=== PATIENT | male | born 1950 | race Two or more races ===

== ENCOUNTER 2019-02-19 08:40 | Observation (INO) | payer BC, MEDICAID, OTHER ==
[~2019-02-19] VITALS: Ht 180.3 cm; Wt 102.5 kg
[~2019-02-19 08:40] MED LIST: ASPI-858 PO; COR12.5 PO; ERGO400T3 PO; FENO145T PO; FURO20TA4 PO; LOSA1TAB15 PO; METF-379 PO; POTA8CAP PO; PRO40 PO; SIMV20TA6 PO
--- NOTE | 2019-02-19 08:40 | NUR ---
Patient to ER bed 3 to gown for evaluation. Side rails up.
--- NOTE | 2019-02-19 08:49 | NUR ---
Patient is awake, alert, and oriented x4. Patient is complaining of chest pressure x3 days, denies it is pain. He denies nausea, vomiting, and diarrhea.
[2019-02-19 08:50] VITALS: BP_SYST 158
--- NOTE | 2019-02-19 08:54 | NUR ---
ER Dr. Guerra at bedside examining patient.
[2019-02-19] MEDS ORDERED: ASPIRIN 81 MG TAB.CHEW PO ONE (09:00)
[2019-02-19] MEDS ORDERED: NITROGLYCERIN 0.4 MG TAB.SUBL SL ONE (09:15)
[2019-02-19 09:27] LABS: EOSINOPHILS # (AUTO) 0.1 K/uL (0.0-0.4); HEMATOCRIT 49.2 % (36-54)
[2019-02-19 09:33] LABS: BASOPHILS # (AUTO) 0.1 K/uL (0.0-0.2); BASOPHILS % (AUTO) 0.7 % (0.0-2.0); EOSINOPHILS % (AUTO) 0.6 % (0.0-4.0); HEMOGLOBIN 16.7 g/dL (14.0-18.0); LYMPHOCYTES # (AUTO) 2.3 K/uL (1.0-5.5); MEAN CORPUSCULAR HEMOGLOBIN 31 pg (27-31); MEAN CORPUSCULAR HGB CONC 34 % (32-36); MEAN CORPUSCULAR VOLUME 91 fL (79.0-98.0); MONOCYTES # (AUTO) 0.5 K/uL (0.0-1.0); MONOCYTES % (AUTO) 5.9 % (1.7-9.3); NEUTROPHILS # (AUTO) 5.5 K/uL (1.8-7.7); NEUTROPHILS % (AUTO) 65.8 % (40.0-70.0); PLATELET COUNT (AUTO) 172 K/uL (130-430); RED BLOOD CELL COUNT(AUTO) 5.41 MIL/uL (4.2-6.2); RED CELL DISTRIBUTION WIDTH 13.2 % (9.0-15.0); WHITE BLOOD COUNT (AUTO) 8.4 K/uL (4.8-10.8)
[2019-02-19 09:37] LABS: CALCIUM 8.9 mg/dL (8.4-11.0); CREATININE 1.14 mg/dL (0.55-1.30); POTASSIUM 4.1 mmol/L (3.5-5.1)
[2019-02-19 09:42] LABS: ALBUMIN 3.8 g/dL (3.4-4.8); TOTAL BILIRUBIN 0.9 mg/dL (0.0-1.0)
[2019-02-19] MEDS ORDERED: POTA8TAB4 PO (10:30)
[2019-02-19] MEDS ORDERED: LOSA100T3 PO (10:30)
[2019-02-19] MEDS ORDERED: ASPI-1153 PO (10:30)
[2019-02-19] MEDS ORDERED: ROSU10TA2 PO (10:30)
[2019-02-19] MEDS ORDERED: Fenofibrate PO (10:30)
[2019-02-19] MEDS ORDERED: LIP10 PO (10:30)
[2019-02-19] MEDS ORDERED: DONE10TA44 PO (10:30)
[2019-02-19] MEDS ORDERED: MEMA10TA PO (10:30)
[2019-02-19] MEDS ORDERED: FURO-150 PO (10:30)
--- NOTE | 2019-02-19 10:31 | NUR ---
Medication reconciliation completed with information provided by patient. Any prior medication reconciliation on file was reviewed and corrected.
--- NOTE | 2019-02-19 11:12 | NUR ---
Patient will be admitted to care of Dr. Weston. Admitted to telemetry unit. Waiting for room assignment. Belongings list completed. Complete and up to date summary report printed. SBAR report to be given at bedside with opportunity for questions.
--- NOTE | 2019-02-19 11:19 | NUR ---
Patient assigned to room 130A by FORTINO Lucas.
[2019-02-19 11:24] LABS: BILIRUBIN,URINE NEGATIVE (NEGATIVE); BLOOD, URINE NEGATIVE (NEGATIVE); CLARITY/URINE CLEAR (CLEAR); COLOR,URINE YELLOW (YELLOW); GLUCOSE,URINE 3+ (NEGATIVE); KETONES,URINE NEGATIVE (NEGATIVE); LEUKOCYTE ESTERASE ,URINE NEGATIVE (NEGATIVE); NITRITE, URINE NEGATIVE (NEGATIVE); PROTEIN URINE NEGATIVE (NEGATIVE)
[2019-02-19 11:29] LABS: BACTERIA,URINE FEW /HPF (None Seen); RBC,URINE 0-3 /HPF (0-3); WBC,URINE 0-3 /HPF (0-3)
--- NOTE | 2019-02-19 11:30 | NUR ---
[facility] Licensed nurse present. IV present no signs or symptoms of infiltration.
--- NOTE | 2019-02-19 11:36 | NUR ---
Admission Note Received patient from ER with diagnosis of CHEST PAIN. Initial Plan of Care discussed-patient verbalized understanding.. Oriented to room, call light, pain management and safety.
[2019-02-19 11:55] VITALS: BP_SYST 137
[2019-02-19 12:00] VITALS: BP_SYST 137
--- NOTE | 2019-02-19 12:00 | NUR ---
INITIAL NOTE: RECEIVED PATIENT FROM THE ER. PATIENT IS AWAKE AND ALERT x4 LAYING DOWN IN BED. PATIENT STATES HE HAS BEEN HAVING PRESSURE IN HIS CHEST FOR THE PAST THREE DAYS. PATIENT DENIES ANY PAIN AT THE MOMENT. NO SIGNS OF DISTRESS OR SHORTNESS OF BREATH NOTED. IV SITE IS PATENT WITH NO SIGNS OF INFILTRATION. PATIENT IS TOLERATING OXYGEN AT ROOM AIR. PATIENT IN STABLE CONDITION. SAFETY AND FALL PRECAUTIONS ARE IN PLACE. BED LOCKED IN LOWEST POSITION WITH CALL LIGHT IN REACH. WILL CONTINUE TO MONITOR PATIENT FOR ANY CHANGES.
[2019-02-19] MEDS ORDERED: DEXTROSE 50% JECT 50 ML DISP.SYRIN IVP PRN (12:15)
--- NOTE | 2019-02-19 12:29 | NUR ---
Cardiac consult called: for Dr. Cannon, regarding chest pain, ordered by Dr. Weston, spoke with Raysa.
[2019-02-19] MEDS: HYDROCHLOROTHIAZIDE 12.5 MG CAPSULE (HCTZ) PO SCH (14:00)
[2019-02-19] MEDS: LOSARTAN POTASSIUM 50 MG TABLET (COZAAR) PO SCH (14:00)
--- NOTE | 2019-02-19 14:15 | NUR ---
RN ROUNDS: PATIENT IS AWAKE AND ALERT x4 LAYING DOWN IN BED. PATIENT DENIES ANY PAIN AT THE MOMENT. NO SIGNS OF DISTRESS OR SHORTNESS OF BREATH NOTED. PATIENT IN STABLE CONDITION. WILL CONTINUE TO MONITOR PATIENT FOR ANY CHANGES.
[2019-02-19] MEDS ORDERED: HYDROCHLOROTHIAZIDE 12.5 MG CAPSULE (HCTZ) PO ONE (15:15)
[2019-02-19] MEDS ORDERED: LOSARTAN POTASSIUM 50 MG TABLET (COZAAR) PO ONE (15:15)
[2019-02-19 16:13] VITALS: BP_SYST 154
--- NOTE | 2019-02-19 16:17 | NUR ---
RN ROUNDS: PATIENT IS AWAKE AND ALERT x 4 LAYING DOWN IN BED. PATIENT DENIES ANY PAIN AT THE MOMENT. NO SIGNS OF DISTRESS OR SHORTNESS OF BREATH NOTED. PATIENT IN STABLE CONDITION. WILL CONTINUE TO MONITOR PATIENT FOR ANY CHANGES.
[2019-02-19] MEDS ORDERED: metFORMIN HCL 500 MG TABLET PO SCH (18:00)
[2019-02-19] MEDS: INSULIN REGULAR, HUMAN 100 UNITS/ML, 10 ML VIAL (humuLIN R) SUBCUT PRN (18:16)
--- NOTE | 2019-02-19 18:48 | NUR ---
CLOSING NOTES: PATIENT IS AWAKE AND ALERT x4 LAYING DOWN IN BED. PATIENT DENIES ANY PAIN AT THE MOMENT. NO SIGNS OF DISTRESS OR SHORTNESS OF BREATH NOTED. IV SITE IS PATENT WITH NO SIGNS OF INFILTRATION. PATIENT IS TOLERATING OXYGEN AT ROOM AIR. PATIENT IN STABLE CONDITION. SAFETY AND FALL PRECAUTIONS REMAINED IN PLACE THROUGHOUT THE SHIFT. BED LOCKED IN LOWEST POSITION WITH CALL LIGHT IN REACH. WILL ENDORSE PATIENT CARE TO ONCOMING HEALTH AND SAFETY INSPECTOR NURSE.
[2019-02-19 20:00] VITALS: BP_SYST 125
--- NOTE | 2019-02-19 20:00 | NUR ---
ASUMED CARE. RECEIVED ALERT,ORIENTED,AMBULATORY. AFEBRILE, NOT IN ACUTE DISTRESS. DENIES ANY PAIN OR DISCOMFORT. WITH SALINE LOCK TO THE LEFT AC INTACT. SAO2=94% ON ROOM AIR. SINUS RHYTHM AT 80-90'S/MINUTE ON THE MONITOR. VS STABLE, WILL CONTINUE TO MONITOR.
--- NOTE | 2019-02-19 20:15 | NUR ---
KODY FROM PHARMACY CALLED RE: LASIX ORDERS NEED TO BE CLARIFIED WITH ATTENDING MD. WILL CALL .
--- NOTE | 2019-02-19 20:38 | NUR ---
PAGED PAGED THE [employer] COMPLIANCE COORDINATOR PHYSICIAN, DR. REYNA, SPOKE EDMUNDO
[2019-02-19] MEDS ORDERED: ATORVASTATIN 10 MG TABLET PO SCH (21:00)
[2019-02-19] MEDS ORDERED: FUROSEMIDE 20 MG TABLET PO SCH (21:00)
[2019-02-19] MEDS ORDERED: ROSUVASTATIN CALCIUM 5 MG/TAB (CRESTOR) PO SCH (21:00)
--- NOTE | 2019-02-19 21:03 | NUR ---
[employer] SUPPORT MANAGER FOR CALLED BACK. MADE AWARE OF LASIX ORDER DISCREPANCY. SAID TO D/C LASIX 40 MG PO BID ORDER AND KEEP LASIX 20 MG PO QD ORDER.
[2019-02-19] MEDS: MEMANTINE HCL 5 MG TABLET PO SCH (21:10)
[2019-02-19] MEDS: CARVEDILOL 12.5 MG TABLET (COREG) PO SCH (21:10)
--- NOTE | 2019-02-19 21:10 | NUR ---
DUE MEDICATIONS GIVEN.
[2019-02-20] VITALS: BP_SYST 121
[2019-02-20] MEDS: INSULIN REGULAR, HUMAN 100 UNITS/ML, 10 ML VIAL (humuLIN R) SUBCUT PRN ×2 (00:49→11:30)
--- NOTE | 2019-02-20 00:49 | NUR ---
FINGERSTICK BLOOD SUGAR SAILL=465. 6 UNITS OF REGULAR INSULIN SQ GIVEN PER SLIDING SCALE. PT. AWAKE, NOT IN ANY KIND OF DISTRESS. NO PAIN OR DISCOMFORT NOTED. PT.REMAINS STABLE AND PAIN FREE.
--- NOTE | 2019-02-20 04:00 | NUR ---
ASLEEP, NO SIGNIFICANT CHANGE PT. REMAIN STABLE AND PAIN FREE. WILL CONTINUE TO MONITOR.
--- NOTE | 2019-02-20 06:53 | NUR ---
[id number]. PT. NPO FOR STRESS TEST. NO INSULIN COVERAGE GIVEN.
--- NOTE | 2019-02-20 07:23 | NUR ---
ENDORSED CARE TO CHRISTIANE ALANIS
--- NOTE | 2019-02-20 07:30 | NUR ---
Opening note Patient resting in bed at this time, A/ox4, no complaints of pain. IV patent, intact. No infiltration noted. Patient is NPO at this time, awaiting Luz scan. On safety and aspiration precautions, HOB kept elevated, 3 side rails up, call light within reach. patient in stable condition. Will continue to monitor.
[2019-02-20 08:00] VITALS: BP_SYST 134
[2019-02-20] MEDS ORDERED: DONEPEZIL HCL 5 MG TABLET (ARICEPT) PO SCH (09:00)
[2019-02-20] MEDS ORDERED: ASPIRIN 81 MG TABLET(ECOTRIN) PO SCH (09:00)
[2019-02-20] MEDS ORDERED: PANTOPRAZOLE SODIUM 40 MG TAB PO SCH (09:00)
[2019-02-20] MEDS ORDERED: ASPIRIN 325 MG TABLET PO SCH (09:00)
[2019-02-20] MEDS ORDERED: POTASSIUM CHLORIDE 8 MEQ TABLET.SA PO SCH (09:00)
[2019-02-20] MEDS ORDERED: FUROSEMIDE 20 MG TABLET PO SCH (09:00)
[2019-02-20] MEDS ORDERED: REGADENOSON 0.4 MG/5 ML SYRINGE IVP ONE (09:30)
--- NOTE | 2019-02-20 09:30 | NUR ---
Patient left for Luz scan patient left for luz scan in wheelchair. patient in stable condition.
--- NOTE | 2019-02-20 09:30 | NUR ---
medications held All morning medications held, patient is NPO, awaiting purnima scan. No other needs at this time.
--- NOTE | 2019-02-20 11:30 | NUR ---
patient returned from purnima scan patient returned from purnima scan in stable condition. No other needs at this time.
[2019-02-20] MEDS: MEMANTINE HCL 5 MG TABLET PO SCH (11:57)
[2019-02-20] MEDS: HYDROCHLOROTHIAZIDE 12.5 MG CAPSULE (HCTZ) PO SCH (11:58)
[2019-02-20] MEDS: CARVEDILOL 12.5 MG TABLET (COREG) PO SCH (11:59)
[2019-02-20] MEDS: LOSARTAN POTASSIUM 50 MG TABLET (COZAAR) PO SCH (12:00)
[2019-02-20 12:58] VITALS: BP_SYST 128
--- NOTE | 2019-02-20 13:38 | NUR ---
D/C Patient Patient given medication reconciliation form and D/C instructions. Exit Care provided. Patient verbalized understanding. MD discussed with patient the results and treatment provided. Ambulatory with steady gait for discharge to home. Patient in stable condition, ID band removed. IV catheter removed, intact and dressing applied, no active bleeding.Patient educated on pain management. All belongings sent with patient.
[2019-02-20] MEDS ORDERED: SIMVASTATIN 20 MG TABLET PO SCH (21:00)
== END 2019-02-20 13:30 | disposition home or self-care (01) ==
LOC: SED 08:40 → STU 11:08
PROVIDERS: ADMIT Internal Medicine Hospice and Palliative Medicine; ATTEND Internal Medicine Hospice and Palliative Medicine
DX: R07.9 Chest pain, unspecified (principal); E11.9 Type 2 diabetes mellitus without complications; I10 Essential (primary) hypertension; I25.2 Old myocardial infarction; Z79.82 Long term (current) use of aspirin; Z79.899 Other long term (current) drug therapy
CPT/HCPCS: 36415; 71045; 78452; 80053; 81000; 82550; 82962 ×2; 83880; 84484; 85025; 85379; 93005; 93017; 93306; 96372 ×2; 99285; A9500; G0378 ×2; J2785

== ENCOUNTER 2020-03-19 18:21 | Emergency (ER) | payer BC ==
[~2020-03-19] VITALS: Ht 175.3 cm; Wt 88.5 kg
[2020-03-19 18:21] VITALS: BP_SYST 167
[~2020-03-19 18:21] MED LIST changes: +ASPI-1393 PO; +DONE10TA44 PO; +FURO-150 PO; +Fenofibrate PO; +LIP10 PO; +LOSA100T3 PO; +MEMA10TA PO; +POTA8TAB4 PO; +ROSU10TA2 PO; +SIMV-43 PO; -SIMV20TA6 PO
[2020-03-19] MEDS ORDERED: IOHEXOL 350 mgI/mL, 150 ML INFUS..BTL IV ONE (20:47)
[2020-03-19 20:50] LABS: BASOPHILS # (AUTO) 0.1 K/uL (0.0-0.2); BASOPHILS % (AUTO) 0.7 % (0.0-2.0); EOSINOPHILS # (AUTO) 0.2 K/uL (0.0-0.4); EOSINOPHILS % (AUTO) 1.7 % (0.0-4.0); HEMATOCRIT 49.9 % (36-54); HEMOGLOBIN 16.8 g/dL (14.0-18.0); LYMPHOCYTES # (AUTO) 3.3 K/uL (1.0-5.5); MEAN CORPUSCULAR HEMOGLOBIN 30 pg (27-31); MEAN CORPUSCULAR HGB CONC 34 % (32-36); MEAN CORPUSCULAR VOLUME 88 fL (79.0-98.0); MONOCYTES # (AUTO) 0.7 K/uL (0.0-1.0); MONOCYTES % (AUTO) 6.6 % (1.7-9.3); NEUTROPHILS # (AUTO) 6.4 K/uL (1.8-7.7); PLATELET COUNT (AUTO) 198 K/uL (130-430); RED BLOOD CELL COUNT(AUTO) 5.64 MIL/uL (4.2-6.2); WHITE BLOOD COUNT (AUTO) 10.7 K/uL (4.8-10.8)
[2020-03-19 21:13] LABS: CALCIUM 9.6 mg/dL (8.4-11.0); CREATININE 1.07 mg/dL (0.55-1.30); POTASSIUM 4.4 mmol/L (3.5-5.1)
[2020-03-19 21:20] LABS: ALBUMIN 4.3 g/dL (3.4-4.8); TOTAL BILIRUBIN 0.8 mg/dL (0.0-1.0)
[2020-03-19 23:40] VITALS: BP_SYST 167
== END 2020-03-19 23:39 | disposition home or self-care (01) ==
LOC: SED 18:21
DX: H02.401 Unspecified ptosis of right eyelid (principal); R51.9 Headache, unspecified; J45.909 Unspecified asthma, uncomplicated; E11.9 Type 2 diabetes mellitus without complications; I10 Essential (primary) hypertension; Z88.0 Allergy status to penicillin; Z79.899 Other long term (current) drug therapy; Z79.82 Long term (current) use of aspirin
CPT/HCPCS: 36415; 70450; 70480; 70496; 70498; 71045; 76376; 80053; 82550; 83880; 84484; 85025; 93005; 99285; Q9967

== ENCOUNTER 2022-11-06 17:54 | Inpatient (IN) | payer BC ==
[~2022-11-06] VITALS: Ht 180.3 cm; Wt 103.4 kg
[~2022-11-06 17:54] MED LIST changes: +LOSA-415 PO; -LOSA100T3 PO; -POTA8TAB4 PO; +POTA8TAB66 PO
[2022-11-06 17:55] VITALS: BP_SYST 110; PULSE 103; RESP 20; TEMP 97.6; O2SAT 93
[2022-11-06] MEDS ORDERED: IPRATROPIUM/ALBUTEROL SULFATE 3 ML AMPUL.NEB (DUONEB) INH ONE (18:15)
[2022-11-06] MEDS ORDERED: guaiFENesin/DEXTROMETHORPHAN 10 ML UDC PO ONE (18:15)
[2022-11-06] MEDS ORDERED: DEXAMETHASONE SOD PHOSPHATE 10 MG/ML VIAL IVP ONE (18:15)
[2022-11-06] MEDS ORDERED: NACL 0.9% 1,000 ML IV ONE (18:15)
[2022-11-06 18:33] LABS: ABG O2 SAT% ESTIMATE 94.1 % (94.0-100.0); BLOOD GAS BASE EXCESS -0.1 mmol/L (-3.0-3.0); BLOOD GAS HCO3 23.8 mmol/L (21.0-27.0); BLOOD GAS PCO2 36.7 mmHg (32.0-45.0); BLOOD GAS PO2 67.9 mmHg (75.0-100.0)
[2022-11-06 18:36] LABS: ALLEN'S TEST POSITIVE (P)
[2022-11-06 18:54] LABS: BASOPHILS # (AUTO) 0.1 K/uL (0.0-0.2); BASOPHILS % (AUTO) 0.8 % (0.0-2.0); EOSINOPHILS # (AUTO) 0.1 K/uL (0.0-0.4); EOSINOPHILS % (AUTO) 0.6 % (0.0-4.0); LYMPHOCYTES # (AUTO) 1.2 K/uL (1.0-5.5); LYMPHOCYTES % (AUTO) 11.2 % (20.5-51.5); MEAN CORPUSCULAR HEMOGLOBIN 29 pg (27-31); MEAN CORPUSCULAR HGB CONC 33 % (32-36); MEAN CORPUSCULAR VOLUME 89 fL (79.0-98.0); MONOCYTES % (AUTO) 9.2 % (1.7-9.3); NEUTROPHILS # (AUTO) 8.6 K/uL (1.8-7.7); NEUTROPHILS % (AUTO) 78.2 % (40.0-70.0); PLATELET COUNT (AUTO) 205 K/uL (130-430); RED BLOOD CELL COUNT(AUTO) 5.15 MIL/uL (4.2-6.2); RED CELL DISTRIBUTION WIDTH 13.6 % (9.0-15.0); WHITE BLOOD COUNT (AUTO) 10.9 K/uL (4.8-10.8)
[2022-11-06 19:18] LABS: ANION GAP 9 (5-15); CALCIUM 9.3 mg/dL (8.4-11.0); CARBON DIOXIDE 26 mmol/L (23-29); CHLORIDE 100 mmol/L (98-107); CREATININE 1.44 mg/dL (0.55-1.30); GFR AFRICAN AMERICAN 62 mL/min (>90); GFR NON AFRICAN-AMERICAN 52 mL/min (>90); GLUCOSE 316 mg/dL (74-106); POTASSIUM 4.4 mmol/L (3.5-5.1); SODIUM SERUM 135 mmol/L (136-145); UREA NITROGEN, BLOOD 20 mg/dL (8-21)
[2022-11-06 19:23] LABS: ALANINE AMINOTRANSFERASE 37 U/L (12-78); ALBUMIN 3.8 g/dL (3.4-4.8); ASPARTATE AMINOTRANSFERASE 25 U/L (10-37); TOTAL BILIRUBIN 0.7 mg/dL (0.0-1.0); TOTAL PROTEIN, SERUM 7.9 g/dL (6.4-8.3)
[2022-11-06] MEDS ORDERED: cefTRIAXone 1 GM IVPB PREMIX 50 ML IV ONE (20:15)
[2022-11-06] MEDS ORDERED: AZITHROMYCIN 500 MG in NS 250 ML IV ONE (20:15)
[2022-11-06 20:23] LABS: BILIRUBIN,URINE NEGATIVE (NEGATIVE); BLOOD, URINE NEGATIVE (NEGATIVE); CLARITY/URINE Clear (CLEAR); COLOR,URINE YELLOW (YELLOW); GLUCOSE,URINE 3+ (NEGATIVE); KETONES,URINE NEGATIVE (NEGATIVE); NITRITE, URINE NEGATIVE (NEGATIVE); PH,URINE 5.5 (5.0-8.0); PROTEIN URINE NEGATIVE (NEGATIVE); UROBILINOGEN,URINE 0.2 (0.2-1.0)
[2022-11-06 20:24] LABS: LEUKOCYTE ESTERASE ,URINE NEGATIVE (NEGATIVE)
[2022-11-06 20:46] LABS: INFLUENZA TYPE A negative (NEGATIVE); INFLUENZA TYPE B NEGATIVE (NEGATIVE)
[2022-11-06] MEDS ORDERED: AZITHROMYCIN 500 MG/VIAL (ZITHROMAX) IV ONE (20:51)
[2022-11-06 21:07] LABS: BACTERIA,URINE FEW /HPF (None Seen); RBC,URINE 0-3 /HPF (0-3); WBC,URINE 0-3 /HPF (0-3)
[2022-11-06 23:42] VITALS: BP_SYST 146; PULSE 88; RESP 20; TEMP 98.6
[2022-11-07 01:39] VITALS: O2SAT 95
[2022-11-07 07:50] VITALS: O2SAT 98
[2022-11-07 08:30] VITALS: BP_SYST 147; PULSE 83; RESP 18; TEMP 97.9; O2SAT 98
[2022-11-07] MEDS: ASPIRIN 81 MG TABLET(ECOTRIN) PO SCH (09:00)
[2022-11-07] MEDS: DECADRON 4 MG TABLET PO SCH (09:00)
[2022-11-07] MEDS: CHOLECALCIFEROL (VITAMIN D3) 5,000 UNIT TABLET PO SCH (09:00)
[2022-11-07] MEDS ORDERED: ASPIRIN 81 MG TABLET(ECOTRIN) PO ONE (10:15)
[2022-11-07] MEDS ORDERED: CHOLECALCIFEROL (VITAMIN D3) 5,000 UNIT TABLET PO ONE (10:30)
[2022-11-07] MEDS ORDERED: DECADRON 4 MG TABLET PO ONE (10:30)
[2022-11-07 12:00] VITALS: BP_SYST 151; PULSE 85; RESP 20; TEMP 97.8; O2SAT 98
[2022-11-07 16:45] VITALS: BP_SYST 145; PULSE 88; RESP 20; TEMP 98.2; O2SAT 98
[2022-11-07 20:00] VITALS: BP_SYST 159; PULSE 87; RESP 18; TEMP 98; O2SAT 97
[2022-11-08] VITALS (7 sets, daily range): BP systolic 144–161; PULSE 89–94; RESP 18–20; TEMP 97.3–98.2; O2SAT 95–100
[2022-11-08 05:34] LABS: BASOPHILS % (AUTO) 0.1 % (0.0-2.0); HEMATOCRIT 41.5 % (36-54); HEMOGLOBIN 13.7 g/dL (14.0-18.0); LYMPHOCYTES # (AUTO) 1.4 K/uL (1.0-5.5); LYMPHOCYTES % (AUTO) 12.1 % (20.5-51.5); MEAN CORPUSCULAR HEMOGLOBIN 29 pg (27-31); MEAN CORPUSCULAR HGB CONC 33 % (32-36); MEAN CORPUSCULAR VOLUME 89 fL (79.0-98.0); MONOCYTES # (AUTO) 0.7 K/uL (0.0-1.0); MONOCYTES % (AUTO) 5.8 % (1.7-9.3); NEUTROPHILS # (AUTO) 9.4 K/uL (1.8-7.7); PLATELET COUNT (AUTO) 204 K/uL (130-430); RED BLOOD CELL COUNT(AUTO) 4.65 MIL/uL (4.2-6.2); RED CELL DISTRIBUTION WIDTH 13.5 % (9.0-15.0); WHITE BLOOD COUNT (AUTO) 11.5 K/uL (4.8-10.8)
[2022-11-08 05:43] LABS: CALCIUM 8.8 mg/dL (8.4-11.0); CREATININE 1.42 mg/dL (0.55-1.30); POTASSIUM 4.1 mmol/L (3.5-5.1)
[2022-11-08] MEDS: DECADRON 4 MG TABLET PO SCH (09:52)
[2022-11-08] MEDS: CHOLECALCIFEROL (VITAMIN D3) 5,000 UNIT TABLET PO SCH (09:54)
[2022-11-08] MEDS: ASPIRIN 81 MG TABLET(ECOTRIN) PO SCH (09:54)
[2022-11-08 10:55] LABS: BASOPHILS % (AUTO) 0.1 % (0.0-2.0); HEMATOCRIT 45.9 % (36-54); HEMOGLOBIN 14.9 g/dL (14.0-18.0); LYMPHOCYTES # (AUTO) 1.7 K/uL (1.0-5.5); LYMPHOCYTES % (AUTO) 10.8 % (20.5-51.5); MEAN CORPUSCULAR HEMOGLOBIN 29 pg (27-31); MEAN CORPUSCULAR HGB CONC 33 % (32-36); MEAN CORPUSCULAR VOLUME 90 fL (79.0-98.0); MONOCYTES # (AUTO) 1.3 K/uL (0.0-1.0); MONOCYTES % (AUTO) 8.4 % (1.7-9.3); NEUTROPHILS # (AUTO) 12.9 K/uL (1.8-7.7); NEUTROPHILS % (AUTO) 80.7 % (40.0-70.0); PLATELET COUNT (AUTO) 232 K/uL (130-430); RED BLOOD CELL COUNT(AUTO) 5.08 MIL/uL (4.2-6.2); RED CELL DISTRIBUTION WIDTH 13.8 % (9.0-15.0)
[2022-11-08 12:39] LABS: ABG O2 SAT% ESTIMATE 96.1 % (94.0-100.0); BLOOD GAS BASE EXCESS -1.9 mmol/L (-3.0-3.0); BLOOD GAS HCO3 21.9 mmol/L (21.0-27.0); BLOOD GAS PCO2 34.7 mmHg (32.0-45.0); BLOOD GAS PH 7.417 (7.350-7.450)
[2022-11-08 12:43] LABS: ALLEN'S TEST POSITIVE (P)
[2022-11-08] MEDS: CEFEPIME 2 GM in D5W 100 ML IV SCH (18:14)
[2022-11-08] MEDS: AZITHROMYCIN 500 MG in NS 250 ML IV SCH (19:34)
[2022-11-09] VITALS (7 sets, daily range): BP systolic 111–167; PULSE 75–103; RESP 16–20; TEMP 96.8–98.6; O2SAT 93–100
[2022-11-09 04:21] LABS: BASOPHILS % (AUTO) 0.1 % (0.0-2.0); HEMATOCRIT 40.4 % (36-54); HEMOGLOBIN 13.6 g/dL (14.0-18.0); LYMPHOCYTES # (AUTO) 1.5 K/uL (1.0-5.5); LYMPHOCYTES % (AUTO) 14.2 % (20.5-51.5); MEAN CORPUSCULAR HEMOGLOBIN 30 pg (27-31); MEAN CORPUSCULAR HGB CONC 34 % (32-36); MEAN CORPUSCULAR VOLUME 88 fL (79.0-98.0); MONOCYTES # (AUTO) 0.7 K/uL (0.0-1.0); NEUTROPHILS # (AUTO) 8.6 K/uL (1.8-7.7); NEUTROPHILS % (AUTO) 79.7 % (40.0-70.0); PLATELET COUNT (AUTO) 198 K/uL (130-430); RED BLOOD CELL COUNT(AUTO) 4.59 MIL/uL (4.2-6.2); RED CELL DISTRIBUTION WIDTH 13.4 % (9.0-15.0); WHITE BLOOD COUNT (AUTO) 10.8 K/uL (4.8-10.8)
[2022-11-09 04:44] LABS: CALCIUM 8.7 mg/dL (8.4-11.0); CREATININE 1.26 mg/dL (0.55-1.30); POTASSIUM 4.1 mmol/L (3.5-5.1)
[2022-11-09] MEDS: ENOXAPARIN SODIUM 30 MG/0.3 ML SYRINGE SUBCUT SCH (09:00)
[2022-11-09] MEDS: CHOLECALCIFEROL (VITAMIN D3) 5,000 UNIT TABLET PO SCH (09:01)
[2022-11-09] MEDS: DECADRON 4 MG TABLET PO SCH (09:01)
[2022-11-09] MEDS: ASPIRIN 81 MG TABLET(ECOTRIN) PO SCH (09:01)
[2022-11-09] MEDS ORDERED: GLUCOSE (DEXTROSE) ORAL GEL -Adults PO PRN (12:30)
[2022-11-09] MEDS ORDERED: D5W 1,000 ML IV PRN (12:30)
[2022-11-09] MEDS ORDERED: DEXTROSE 50% JECT 50 ML DISP.SYRIN IVP PRN (12:30)
[2022-11-09] MEDS ORDERED: MILK OF MAGNESIA 30 ML UDC PO PRN (13:00)
[2022-11-09] MEDS: CEFEPIME 2 GM in D5W 100 ML IV SCH (17:47)
[2022-11-09] MEDS: INSULIN LISPRO SLIDING SCALE 100 UNITS/ML, 3 ML VIAL (humaLOG) SUBCUT PRN ×2 (17:59→20:38)
[2022-11-09] MEDS: AZITHROMYCIN 500 MG in NS 250 ML IV SCH (19:13)
[2022-11-09] MEDS ORDERED: METF-379 PO (20:27)
[2022-11-09] MEDS ORDERED: LOSA-421 PO (20:27)
[2022-11-09] MEDS ORDERED: FURO-150 PO (20:27)
[2022-11-09] MEDS: MINERAL OIL 30 ML UDC PO SCH (20:27)
[2022-11-10] VITALS: BP_SYST 133; PULSE 70; RESP 18; TEMP 98.9; O2SAT 94
[2022-11-10] MEDS: INSULIN LISPRO SLIDING SCALE 100 UNITS/ML, 3 ML VIAL (humaLOG) SUBCUT PRN ×2 (06:15→12:22)
[2022-11-10 07:00] VITALS: BP_SYST 134; PULSE 80; RESP 16; TEMP 98.4; O2SAT 96
[2022-11-10 07:58] LABS: BASOPHILS % (AUTO) 0.1 % (0.0-2.0); HEMATOCRIT 45.8 % (36-54); HEMOGLOBIN 15.2 g/dL (14.0-18.0); LYMPHOCYTES # (AUTO) 2.1 K/uL (1.0-5.5); LYMPHOCYTES % (AUTO) 18.7 % (20.5-51.5); MEAN CORPUSCULAR HEMOGLOBIN 29 pg (27-31); MEAN CORPUSCULAR HGB CONC 33 % (32-36); MEAN CORPUSCULAR VOLUME 88 fL (79.0-98.0); MONOCYTES # (AUTO) 0.7 K/uL (0.0-1.0); MONOCYTES % (AUTO) 6.6 % (1.7-9.3); NEUTROPHILS # (AUTO) 8.2 K/uL (1.8-7.7); NEUTROPHILS % (AUTO) 74.6 % (40.0-70.0); PLATELET COUNT (AUTO) 242 K/uL (130-430); RED BLOOD CELL COUNT(AUTO) 5.18 MIL/uL (4.2-6.2); RED CELL DISTRIBUTION WIDTH 13.7 % (9.0-15.0)
[2022-11-10 08:04] LABS: CALCIUM 9.3 mg/dL (8.4-11.0); CREATININE 1.26 mg/dL (0.55-1.30)
[2022-11-10 09:00] VITALS: BP_SYST 160; PULSE 80; RESP 16; TEMP 98.4; O2SAT 96
[2022-11-10] MEDS: CHOLECALCIFEROL (VITAMIN D3) 5,000 UNIT TABLET PO SCH (10:47)
[2022-11-10] MEDS: DECADRON 4 MG TABLET PO SCH (10:47)
[2022-11-10] MEDS: MINERAL OIL 30 ML UDC PO SCH (10:47)
[2022-11-10] MEDS: ASPIRIN 81 MG TABLET(ECOTRIN) PO SCH (10:47)
[2022-11-10] MEDS: ENOXAPARIN SODIUM 30 MG/0.3 ML SYRINGE SUBCUT SCH (10:48)
[2022-11-10] MEDS ORDERED: CHOL500013 PO (11:00)
[2022-11-10] MEDS ORDERED: ZINC100T2 PO (11:00)
[2022-11-10 12:00] VITALS: BP_SYST 138; PULSE 82; RESP 19; TEMP 98.7; O2SAT 98
[2022-11-10 12:56] LABS: BASOPHILS % (AUTO) 0.1 % (0.0-2.0); EOSINOPHILS % (AUTO) 0.2 % (0.0-4.0); HEMATOCRIT 45.5 % (36-54); LYMPHOCYTES # (AUTO) 2.2 K/uL (1.0-5.5); MEAN CORPUSCULAR HEMOGLOBIN 30 pg (27-31); MEAN CORPUSCULAR HGB CONC 33 % (32-36); MEAN CORPUSCULAR VOLUME 89 fL (79.0-98.0); MONOCYTES % (AUTO) 8.5 % (1.7-9.3); NEUTROPHILS # (AUTO) 8.9 K/uL (1.8-7.7); NEUTROPHILS % (AUTO) 73.2 % (40.0-70.0); PLATELET COUNT (AUTO) 244 K/uL (130-430); RED CELL DISTRIBUTION WIDTH 13.6 % (9.0-15.0); WHITE BLOOD COUNT (AUTO) 12.2 K/uL (4.8-10.8)
[2022-11-10 15:40] VITALS: BP_SYST 144; PULSE 75; RESP 16; TEMP 98.7; O2SAT 97
== END 2022-11-10 16:20 | disposition home or self-care (01) | DRG 177 ==
LOC: SED 17:54 → SMU 21:21 → STU 22:04 → SMU 11-08 22:28
PROVIDERS: ADMIT Specialist; ATTEND Specialist
PROC: XW033E5 Introduction of Remdesivir Anti-infective into Peripheral Vein, Percutaneous Approach, New Technology Group 5 (ICD-10-PCS; principal; 2022-11-08)
DX: U07.1 COVID-19 (principal); J12.82 Pneumonia due to coronavirus disease 2019; R65.11 Systemic inflammatory response syndrome (SIRS) of non-infectious origin with acute organ dysfunction; J44.1 Chronic obstructive pulmonary disease with (acute) exacerbation; J44.0 Chronic obstructive pulmonary disease with (acute) lower respiratory infection; I11.0 Hypertensive heart disease with heart failure; I50.9 Heart failure, unspecified; R09.02 Hypoxemia; K59.00 Constipation, unspecified; E78.5 Hyperlipidemia, unspecified; E66.01 Morbid (severe) obesity due to excess calories; Z88.0 Allergy status to penicillin; Z79.4 Long term (current) use of insulin; Z87.891 Personal history of nicotine dependence; Z79.899 Other long term (current) drug therapy; Z79.82 Long term (current) use of aspirin; I25.2 Old myocardial infarction; Z68.31 Body mass index [BMI] 31.0-31.9, adult; E11.65 Type 2 diabetes mellitus with hyperglycemia
CPT/HCPCS: 36415; 36600; 71045; 80048; 80053; 81000; 81003; 82803; 82962; 83605; 83880; 84484; 85025; 85379; 87040; 87086; 93005; 94640; 96365; 96368; 99285; G0378; J0456; J0692; J0696; J1100; J1650; J7050; J7060; J8540